=== PATIENT | female | born 2000 | race Caucasian/White ===

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

== ENCOUNTER 2019-09-29 10:24 | Emergency (ER) | payer OTHER ==
[2019-09-29 10:51] VITALS: BP 144/91
--- NOTE | 2019-09-29 11:27 | UC ---
Cardiac HPI - HPI Summary HPI Summary: 19 year old female with no PMH, no recent trauma presents with substernal chest pain, worse with deep breathing, positioning x 24 hours. States roommate has PNA, concerned as she had pna last year. no cough, feeling ill, fatigue, sore throat, ear pain, GI symptoms. denies fever, chills. no complaints other than chest pain. Pain is a 2/10 at worst, constant. no lightheadedness, dizziness. no drug/ cocaine use. - History of Current Complaint Chief Complaint: UCGeneralIllness Stated Complaint: CHEST PAIN Time Seen by Provider: 09/29/19 11:12 Hx Obtained From: Patient Hx Last Menstrual Period: 09/27/19 Onset/Duration: Sudden Onset, Lasting Days - 24 hours Initial Severity: Mild Current Severity: Mild Pain Intensity: 2 Chest Pain Location: Upper Sternal - Allergy/Home Medications Allergies/Adverse Reactions: Allergies Allergy/AdvReac Type Severity Reaction Status Date / Time No Known Allergies Allergy Verified 09/29/19 10:45 Home Medications: Home Medications buPROPion TAB* [Wellbutrin TAB*] 75 mg PO DAILY 09/29/19 [History Confirmed 07/10] PMH/Surg Hx/FS Hx/Imm Hx Previously Healthy: Yes - Surgical History Surgical History: Yes Surgery Procedure, Year, and Place: T & A. [place] - Family History Known Family History: Positive: None, Other - No PE - Social History Occupation: Student Alcohol Use: Occasionally Substance Use Type: None Smoking Status (MU): Never Smoked Tobacco Review of Systems All Other Systems Reviewed And Are Negative: Yes Constitutional: Negative: Fever, Chills, Fatigue Respiratory: Negative: Shortness Of Breath, Cough Cardiovascular: Positive: Chest Pain. Negative: Palpitations Gastrointestinal: Negative: Abdominal Pain, Vomiting, Diarrhea Musculoskeletal: Positive: Negative. Negative: Edema Neurological: Negative: Headache, Weakness, Paresthesia Psychological: Negative: Anxious Is Patient Immunocompromised?: No Physical Exam Triage Information Reviewed: Yes Appearance: Well-Appearing, No Pain Distress, Well-Nourished Vital Signs: Initial Vital Signs Temp 97.9 F 09/29/19 10:46 Pulse 84 09/29/19 10:46 Resp 14 09/29/19 10:46 BP 144/91 09/29/19 10:46 Pulse Ox 100 12/09/19 10:46 Vital Signs Reviewed: Yes Eyes: Positive: Conjunctiva Clear ENT: Positive: Hearing grossly normal, Pharynx normal, Uvula midline. Negative : Pharyngeal erythema, Tonsillar swelling, Tonsillar exudate Neck: Positive: Supple, Nontender, No Lymphadenopathy, Other: - no claviclar, cervical, submand LAD. Negative: Nuchal Rigidity, Enlarged Nodes @ Respiratory: Positive: Chest non-tender, Lungs clear, Normal breath sounds, No respiratory distress, No accessory muscle use. Negative: Respiratory distress, Decreased breath sounds, Accessory muscle use, Crackles, Rhonchi, Stridor, Wheezing, Expiration, Inspiration, Plerual rub Cardiovascular: Positive: RRR, No Murmur, Pulses Normal. Negative: Tachycardia , Bradycardia, Murmur:Sys:Grade _?_/, Murmur:Dys:Grade _?_/, Delayed Capillary Refill Musculoskeletal Exam: Normal Neurological Exam: Normal Skin Exam: Normal Skin: Negative: Rashes - Assessment/Plan Course Of Treatment: - Antibiotics given in case symptoms increase due to recent exposure to pneumonia. use back up form of control while taking antibiotics AND until you start a new pack of control to prevent . - Increase fluid intake, rest - OVer the counter medications such as tylenol, motrin for pain, cough drops. - Humidifer at night to help with cough, keep air ways moist - REturn with shortness of breath, fever, chills, increased symptoms. EKG- Normal Alum Mixer: Nimesh Barron C ([id number]) Benefit Specialist: HAIDER ( HAIDER) Report Date: 09/29/2019 11:53:00 Report Status: Final ====== Start of Report Content Patient Name: NAVIN TAYLOR Medical Record#: [id number] Ordering Physician: Wilma GARNER Acct.#: [id number] : Age: 19 Sex: F Location: URGENT CARE - ART Exam Date: 09/29/19 1123 ADM Status: REG ER Order Information: CHEST PA LAT 2 VWS Accession Number: [id number] CPT: 37779 INDICATION: Sternal chest pain for one day. Previous pneumonia. COMPARISON: No relevant prior exams available on the [facility] [place] for comparison. TECHNIQUE: Dual energy PA and lateral views of the chest were obtained. REPORT: Clear lungs and pleural spaces. Negative for pneumothorax. The heart, pulmonary vasculature, and mediastinal contours are unremarkable. Unremarkable osseous structures and soft tissue contours. IMPRESSION: #. No evidence for acute intrathoracic disease. <Electronically signed by Nimesh Barron MD in OV> 07/10 1150 Dictated By: Nimesh Barron MD Dictated Date/Time: 09/29/19 1144 Transcribed Date/Time: 09/29/19 1144 Copy to: CC:Jj Marsh MD; Wilma GARNER; No Primary Care Phys,NOPCP Imaging - [facility] Imaging [facility] [address] [address] ph [phone]) ph ([phone]) ph ([phone]) End of Report Content ==== - Differential Diagnoses - Chest Pain Differential Diagnosis/HQI/PQRI: Angina, Pulmonary Edema, Pulmonary Embolism - Differential Diagnoses - Hypertension Differential Diagnosis/HQI PQRI: Hypertension, Migraine Headache, Renal Disease - Differential Diagnoses - Palpitations Differential Diagnosis/HQI/PQRI: Hypokalemia, Hypoxia, Hyperventilation - Clinical Impression Provider Diagnosis: Chest pain Discharge ED - Sign-Out/Discharge Documenting (check all that apply): Patient Departure All imaging exams completed and their final reports reviewed: Yes - Discharge Plan Condition: Good Disposition: HOME Prescriptions: Azithromyxin KARRI (NF) [Z-Karri (Zithromax) 250 mg tabs #6] 2 tab PO .TODAY, THEN 1 DAILY #6 tab Patient Education Materials: Chest Pain (ED) Referrals: No Primary Care Phys,NOPCP [Primary Care Provider] - Additional Instructions: - ANtibiotics given in case symptoms increase due to recent exposure to pneumonia. use back up form of control while taking antibiotics AND until you start a new pack of control to prevent . - Increase fluid intake, rest - OVer the counter medications such as tylenol, motrin for pain, cough drops. - Humidifer at night to help with cough, keep air ways moist - REturn with shortness of breath, fever, chills, lightheadedness, dizziness, increased symptoms- go to ER to rule out other causes such as pulmonary embolism. EKG- Normal Alum Mixer: Nimesh Barron C ([id number]) Benefit Specialist: HAIDER ( HAIDER) Report Date: 09/29/2019 11:53:00 Report Status: Final ====== Start of Report Content Patient Name: NAVIN TAYLOR Medical Record#: [id number] Ordering Physician: Wilma GARNER Acct.#: [id number] : Age: 19 Sex: F Location: [facility] Exam Date: 09/29/19 1123 ADM Status: REG ER Order Information: CHEST PA LAT 2 VWS Accession Number: [id number] CPT: 02905 INDICATION: Sternal chest pain for one day. Previous pneumonia. COMPARISON: No relevant prior exams available on the [facility] [place] for [place]. TECHNIQUE: Dual energy PA and lateral views of the chest were obtained. REPORT: Clear lungs and pleural spaces. Negative for pneumothorax. The heart, pulmonary vasculature, and mediastinal contours are unremarkable. Unremarkable osseous structures and soft tissue contours. IMPRESSION: #. No evidence for acute intrathoracic disease. <Electronically signed by Nimesh Barron MD in OV> 07/10 1150 Dictated By: Nimesh Barron MD Dictated Date/Time: 09/29/19 1144 Transcribed Date/Time: 09/29/19 1144 Copy to: CC:Jj Marsh MD; Wilma GARNER; No Primary Care Phys,NOPCP Imaging - [facility] Imaging - [facility] [address] [facility] [address] [address] ph [phone] ph ([phone] ph ([phone]) End of Report Content ==== - Billing Disposition and Condition Condition: GOOD Disposition: Home - Attestation Statements Provider Attestation: This patient was not seen by me. I was available for consult. Chart reviewed. ASHLEY I did read her EKG
== END 2019-09-29 12:13 | disposition home or self-care (01) ==
LOC: UCCORT 10:24
DX: R07.9 Chest pain, unspecified (principal)
CPT/HCPCS: 71046; 93005; 99212; G0463